=== PATIENT | female | born 1985 | race Hispanic/Latino ===

== ENCOUNTER 2021-03-17 14:58 | Outpatient (CLI) | payer OTHER, SELFPAY ==
--- NOTE | ~2021-03-17 | XR_ITS ---
XR ankle RT min 3V DATE: 03/17/2021 15:48 INDICATION: Lateral malleolar pain for 2 weeks. No injury. TECHNIQUE: 4 views COMPARISON: None FINDINGS: No fracture or dislocation of the ankle or disruption of the ankle mortise. No periosteal r eaction or bone destruction. Joint spaces are well preserved. IMPRESSION: Negative Reviewed, dictated and finalized at location B. IMPRESSION: Negative
--- NOTE | ~2021-03-17 | US_ITS ---
EXAMINATION: US venous doppler LE RT DATE: 03/17/2021 15:30 INDICATION: Right lower limb pain TECHNIQUE: Gonzalez scale images without and with compression and Doppler images of the right lower extre mity veins were obtained. COMPARISON: None FINDINGS: The right common femoral vein, profunda femoral vein, femoral vein, popliteal vein, peronea l trunk, posterior tibial veins, and greater saphenous vein are patent. IMPRESSION: 1. Patent right lower extremity veins. No evidence of deep venous thrombosis. Reviewed, dictated and finalized at location A.
== END 2021-03-17 14:59 | disposition home or self-care (01) ==
LOC: ANHIMG 15:12
PROVIDERS: PCP Registered Nurse; Visit Provider Registered Nurse
DX: R60.0 Localized edema (principal); M25.571 Pain in right ankle and joints of right foot
CPT/HCPCS: 73610; 93971

== ENCOUNTER 2021-10-16 14:38 | Emergency (ER) | payer OTHER, SELFPAY ==
--- NOTE | ~2021-10-16 | XR_ITS ---
XR abdomen/kub 1V 10/16/2021 15:22 Indication: Lumen pain Procedure: KUB Comparison: No prior studies for comparison. Findings: There is a punctate lower pole stone in the right kidney. Bowel gas pattern nonobstructive. Moderate colonic fecal loading. There are pelvic phleboliths. Impression: 1: Right nephrolithiasis. Reviewed, dictated and finalized at location A. AMURAL DIRECTOR Impression: 1: Right nephrolithiasis.
--- NOTE | 2021-10-16 14:44 | ED.ABDPAIN ---
HPI - Abdominal Pain General Chief Complaint: Abdominal Pain Stated Complaint: Abd pain Time Seen by Provider: 10/16/21 15:00 Source: patient and RN notes reviewed Mode of arrival: ambulatory Limitations: language barrier (Counter Helper used) History of Present Illness HPI narrative: 36-year-old female presents with concern for abdominal pain. Reports intermittent abdominal pain and bilateral low back pain that is an 8 out of 10 at its worst. Reports pain started yesterday. Reports she just started her menstrual cycle. Reports she has had this similar pain every month for the last 3 months before her menstrual cycle begins. She denies nausea. She reports occasional purposeful vomiting because it eases the abdominal pain. She denies constipation or diarrhea. Reports she has been having bowel movements daily, her last bowel movement was today. She denies urine frequency, urgency, dysuria. MD elicited complaint: abdominal pain Related Data Allergies Allergy/AdvReac Type Severity Reaction Status Date / Time No Known Allergies Allergy Verified 10/16/21 15:23 Review of Systems Review of Systems: CONSTITUTIONAL: Denies malaise, chills, sweats, or fever. CARDIOVASCULAR: Denies chest pain, palpitations, or edema. RESPIRATORY: Denies cough or dyspnea. GASTROINTESTINAL: Reports intermittent epigastric abdominal pain. Denies nausea, diarrhea, bloody, or mucous stools. GENITOURINARY: Denies dysuria, frequency, urgency, or hematuria. SKIN: Denies rash or itching. MUSCULOSKELETAL: Reports bilateral low back pain. Denies myalgia. All systems reviewed & are unremarkable except as noted in HPI and below PMFSH Comments At time of signature, agree with nursing past medical, surgical, social and family history. There is no relevant family history pertinent to the presenting complaint Exam Narrative: GENERAL: Well-appearing, well-nourished, and in no acute distress. HEAD: Normocephalic, atraumatic. EYES: PERRLA, conjunctivae clear ENT: Mucous membranes moist. NECK: Supple. No lymphadenopathy CHEST: Speaks in full sentences. No respiratory distress. HEART: Regular rate and rhythm. ABDOMEN: Soft, obese, nondistended. Mild right upper quadrant tenderness. No guarding, rebound tenderness, or rigid. No pulsatille masses. Bowel sounds present in all four quadrants. No organomegaly. Negative Brizuela?s sign. No periumbilical tenderness. No Supra public tenderness or distension. No CVA tenderness SKIN: Warm, dry, no rash. NEURO: Alert and oriented x3. PSYCH: Normal mood and affect Course Course Emergency Course: Patient is aware of diagnosis, understands and agrees to treatment plan. Anticipatory guidance given. Patient agrees to follow-up as directed and is aware of reasons to seek care at the emergency department. Portions of this record may have been created with voice recognition software Vital Signs Vital signs: Reviewed. MDM - Abdominal Pain MDM Narrative Medical decision making narrative: No evidence of pancreatitis, AAA, cholecystitis, choledocholithiasis, cholangitis, mesenteric ischemia, small bowel obstruction, diverticulitis, colitis, appendicitis, or pelvic etiology such as ovarian/testicular torsion, TOA, or ectopic . Patient has no history of peptic ulcer, H. pylori, chronic aspirin NSAID or corticosteroid use, chronic alcohol use, no history of inflammatory bowel disease, no history of active abdominal infection or malignancy. Patient has no history of hernia or intra-abdominal surgeries, patient denies absence of flatus, constipation, melena, hematemesis. Patient denies post-prandial pain. No pain-out of proportion. Exam findings show no acute concerns or changes; patient is non-toxic appearing and is in no distress. Patient is appropriate for outpatient treatment and follow-up. Imaging Data My impression: Images reviewed, interpreted by radiologist, agree, see report. Approximately 2.25 mm Radiologist's impression:
[2021-10-16 14:47] VITALS: BP 117/52; PULSE 116; RESP 16; TEMP 36.5; O2SAT 99
== END 2021-10-16 15:55 | disposition home or self-care (01) ==
PROVIDERS: Emergency Provider Nurse Practitioner; PCP Registered Nurse
DX: N20.0 Calculus of kidney (principal)
CPT/HCPCS: 74018; 81003; 99213; G0463

== ENCOUNTER 2025-06-18 10:23 | Outpatient (CLI) | payer OTHER, MEDICAID, SELFPAY ==
--- NOTE | ~2025-06-18 | US_ITS ---
US soft tissue upper back 06/18/2025 11:17 Indication: Subcutaneous mass of the back Procedure: High-resolution ultrasound of the right back Comparison: No prior studies for comparison. Findings: In the area of palpable concern there is an oval hyperechoic mass measuring 11 x 9 x 6 mm without posterior features or internal vascularity, most likely benign lymph node. Impression: 1: Probable benign 11 mm lymph node in the area of palpable concern in the right back. Recommend follow-up ultrasound as clinically warranted. Reviewed, dictated and finalized at location A. Impression: 1: Probable benign 11 mm lymph node in the area of palpable concern in the righ t back. Recommend follow-up ultrasound as clinically warranted.
--- OUTSIDE RECORDS SUMMARY | 2025-06-18 10:55 | XMS_ITS | Clinical Summary ---
Author Organization [facility] Address [address] [place] [address] Care Team Providers Care Java Web User Interface Developer Name Role Phone Nahtan Munoz NP Primary Care Provider [phone] Allergies No known active allergies Medications OneTouch Delica Plus Lancet 33 gauge misc 4 Active BD Gricelda 2nd Gen Pen Needle 32 gauge x 32 needle USE 1 EACH 2 TIMES DAILY 4 Active BD Ultra-Fine Short Pen Needle 31 gauge x 16 needle USE 1 (ONE) EACH BY INJECTION ROUTE 4 TIMES DAILY 5 Active acetaminophen (TYLENOL) 325 mg tablet Take 2 tablets (650 mg total) by mouth every 6 (six) hours as needed for pain 30 tablet 5 Active Additional Information Patient not taking.Reported on 03/11/2025 docusate sodium (COLACE) 100 mg capsuleIndication s:constipation,St ool Softener Take 1 capsule (100 mg total) by mouth 2 (two) times a day 60 capsule 5 Active ferrous sulfate 325 mg (65 mg of elemental iron) tabletIndications :Iron Deficiency Anemia Take 1 tablet (325 mg total) by mouth daily 30 tablet 11 5 026 Active ibuprofen (ADVIL,MOTRIN) 600 mg tabletIndications :Cramps Take 1 tablet (600 mg total) by mouth every 6 (six) hours as needed for pain 40 tablet 5 Active Additional Information Patient not taking.Reported on 03/11/2025 sertraline (ZOLOFT) 50 mg tablet Take 1 tablet (50 mg total) by mouth daily 30 tablet 11 5 026 Active Additional Information Patient not taking.Reported on 03/11/2025 norethindrone (MICRONOR) 0.35 mg tabletIndications : Contraception Take 1 tablet (0.35 mg total) by mouth daily 28 tablet 12 5 026 Active PNV 119-iron fum-folic acid 29 mg iron- 1 mg tablet Take 1 tablet by mouth daily 90 tablet 3 5 Active Active Problems Problem Noted Date Diagnosed Date Encounter for induction of labor 01/15/2025 Overview (01/16/2025): 01/15/2025 1047 (CZ) 39 yo @ 39w0d who presents for IOL. Her Is complicated by obesity (last EFW 68%), AMA, Grand multip, Anxiety (Hydroxyzine PRN), HSV (Valtrex, active lesion 3/5) and GDMA2 (Lantus 28 units BID, Lispro mealtime). VSS, afebrile A+/Rubella Immune Hgb: 13.0 Reactive tracing GBS negative SVE 1.5/-4 BLE negative Vertex confirmed with bedside ultrasound Plan: buccal cytotec 25 mcg with recheck in 4 hours. Consider pitocin and AROM when appropriate GDMA2: Blood sugar on admission 86 Protocol ordered Blood sugars q2 until active labor, then hourly. HSV: Taking Valtrex 1g Active lesion 3/5, completely recovered 01/08 BLE negative on admission via speculum exam Not first outbreak, on suppressive therapy upon transfer to our clinic Anxiety: Taking PRN hydroxyzine Plan to initiate Zoloft in period. Grandmultip: High risk hemorrhage Plan to have meds at bedside AMA Obesity (last EFW 68%) 01/15/2025 1638 (CZ) VSS, afebrile Reactive tracing S/p misoprostol x1 SVE /-2 Discussed AROM including risks/benefits. Patient agreeable to plan. AROM performed with patient consent. Moderate amount of clear odorless fluid Requesting epidural Anticipate . Antepartum multigravida of advanced maternal age 1109/12/2024 Gestational diabetes mellitus (GDM), antepartum 09/10/2024 Genital herpes affecting , antepartum 0 11/01/2019 Immunizations Immunization Administration Dates Next Due Tdap 10/31/2024 Medical History Medical History Date Comments Anxiety HSV infection Family History Medical History Relation Name Comments Breast cancer Neg Hx Colon cancer Neg Hx Ovarian cancer Neg Hx Uterine cancer Neg Hx Social History Tobacco Use Types Packs/Day Years Used Date Smoking Tobacco: Never Smokeless Tobacco: Never Tobacco Cessation:Counseling Given: Not Answered Social Connection and Isolation Panel Answer Date Recorded In a typical week, how many times do you talk on the phone with family, friends, or neighbors? More than three times a week 01/15/2025 How often do you get togethe r with friends or relatives? Three times a week 01/15/2025 Attends Synagogue Services Not on file 01/15 Active Member of Clubs or Organizations Not on f ile 01/15/2025 Attends Club or Organization Meetings Not on genesis e 01/15/2025 Are you , , di vorced, , never , or living with a partner? 01/15/2025 AUDIT-C Answer Date Recorded Q1: How often do you have a drink containing alcohol? Never 01/15/2025 Q2: How many drinks containi ng alcohol do you have on a typical day when you are drinking? Patient does not drink Q3: How often do you have si x or more drinks on one occasion? Never 01/15/2025 Overall Financial Resource Strain (CARDIA) Answe r Date Recorded How hard is it for you to pa y for the very basics like food, housing, medical care, and heating? Not hard at all 01/15/2025 PHQ-2 Answer Date Recorded PHQ-2 Total Score (If total score is 3 or more points, staff should administer the PHQ-9) 0 01/15/2025 [facility] Occupat ional Health - Occupational Stress Questionnaire Answer Date Recorded Do you feel stress - tense, restless, nervous, or anxious, or unable to sleep at night because your mind is troubled all the time - these days? To some extent 01/15/2025 Exercise Vital Sign Answer Date Recorde d On average, how many days pe r week do you engage in moderate to strenuous exercise (like a brisk walk)? 3 days 01/15/2025 On average, how many minutes do you engage in exercise at this level? 20 min 01/15/2025 Hunger Vital Sign Answer Date Recorded Within the past 12 months, y ou worried that your food would run out before you got the money to buy more. Never true 01/16/20 25 Within the past 12 months, t he food you bought just didn't last and you didn't have money to get more. Never true 01/15/2025 PRAPARE - Transportation Answer Date Re corded In the past 12 months, has l ack of transportation kept you from medical appointments or from getting medications? No 12/28 In the past 12 months, has l ack of transportation kept you from meetings, work, or from getting things needed for daily living? No 01/15/2025 Paradise Depression Scale Answer Date Recorded Paradise Depression Scale Total 3 01/17/2025 The thought of harming myself has occurred to me . Never 01/17/2025 PHQ-9 Answer Date Recorded PHQ-9 Total Score 0 01/15/2025 Housing Stability Vital Sign Answer Shine e Recorded In the last 12 months, was t here a time when you were not able to pay the mortgage or rent on time? No 01/15/2025 In the past 12 months, how m any times have you moved where you were living? 0 01/15/2025 At any time in the past 12 m [facility], were you homeless or living in a retirement (including now)? No 01/15/2025 Personal Safety Answer Date Recorded Have you ever been in or are you currently in a harmful physical or emotional relationship or is someone making you feel afraid or unsafe? 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 Gender Identity Not on file Sexual Orientation Not on file Obstetrics History Para Term AB IAB SAB Ectopic Multiple Livin g Live Births 6 6 6 0 6 6 Date Outcome GA Total Labor Labor/2nd/3rd Weight Sex Type Anes PTL Lila A1 A5 Name Clin 2005 Term 40w 0d 3.345 kg (7 lb 6 oz) M Vag-Sp ont None Livin g Complications:None [facility] Term 40w 0d 4.252 kg (9 lb 6 oz) M Vag-Sp ont Epidur al N Livin g Complications:None [facility] 2010 Term 40w 0d 3.799 kg (8 lb 6 oz) F Vag-Sp ont Epidur al N Livin g Complications:None Delivery [facility] 2017 Term 40w 0d 3.629 kg (8 lb) F Vag-Sp ont Epidur al N Livin g Complications:None Delivery [facility] 2019 Term 40w 0d 3.629 kg (8 lb) F Vag-Sp ont Epidur al N Livin g Complications:None Delivery [facility] 2024 Term 39w 1d 11h 45m 11h 22m/0h 19m/0h 04m 3.75 kg (8 lb 4.3 oz) M Vagina l Epidur al N Livin g 8 9 Nahed Annamaria Staley am, MD Complications: Intolera nce Delivery Location:[facility] Main C amp[facility] ([facility]) Last Filed Vital Signs Vital Sign Reading Time Taken Comments Blood Pressure 100/60 03/11/2025 10:55 AM CDT Pulse 80 2025 10:37 AM CDT Temperature 37 C (98.6 F) 2025 10:37 AM CDT Respiratory Rate 16 2025 10:37 AM CDT Oxygen Saturation 98% 2025 10:37 AM CDT Inhaled Oxygen Concentration - - Weight 87.2 kg (192 lb 3.2 oz) 03/11/2025 10:55 AM CDT Height 154.9 cm (5' 1) 03/11/2025 10:55 AM CDT Body Mass Index 36.32 03/11/2025 10:55 AM CDT Plan of Treatment Health Maintenance Due Date Last Done Comments Breast Cancer Screening-Mammogram 1985 Cervical Cancer Screening 1985 Hepatitis C Screening 1985 Varicella Vaccines (1 of 2 - 13+ 2-dose series) 1998 Hepatitis B Screening 2003 Regular Well Visit/Exam 18-64 2003 HPV Vaccines (1 - 3-dose SCDM series) 01/19/2012 Influenza Vaccine (#1) 2025 Depression Screening 01/17/2026 01/17/2025, 01/15/2025, 01/15/2025 DTaP/Tdap/Td Vaccine (5 - Td or Tdap) 10/31/2034 10/31/2024, 02/26/2020, 06/07/2018, Additional history exists Pneumococcal vaccine <65 Aged Out No longer eligible based on patient's age to complete this topic Insurance [facility] Advance Directives For more information, please contact: [phone] * Full Code (Latest Code Status on File) Date Activated Date Inactivated Comments 01/16/2025 5:04 AM 2025 6:35 PM * Full Code Date Activated Date Inactivated Comments 01/15/2025 8:05 AM 01/16/2025 5:04 AM Full CPR in case of cardiopulmonary arrest Care Teams Java Web User Interface Developer Relationship Specialty Start Date End Date Nathan Munoz NP [address] [place] [address] PCP - General 05/18/20
== END 2025-06-18 10:24 | disposition home or self-care (01) ==
LOC: ANHIMG 10:26
PROVIDERS: PCP Registered Nurse; Visit Provider Registered Nurse
DX: R22.2 Localized swelling, mass and lump, trunk (principal)
CPT/HCPCS: 76604

== ENCOUNTER 2025-09-12 09:12 | Outpatient (CLI) | payer OTHER, MEDICAID, SELFPAY ==
--- NOTE | ~2025-09-12 | US_ITS ---
EXAMINATION: US right upper quadrant DATE: 09/12/2025 10:20 INDICATION: Abnormal test TECHNIQUE: Multiple grayscale and Doppler ultrasound images of the abdomen were obtained. COMPARISON: None FINDINGS: The liver is mildly increased in echotexture and is upper limits normal in size measuring up to 18.15 cm but otherwise appears normal. Cholelithiasis is noted within the gallbladder with the largest stone measuring 1.5 x 1.7 x 0.7 cm. Gallbladder thickness is 2.36 mm. No pericholecystic fluid. Common bile duct: 4.6 mm The pancreas is poorly seen. No free fluid is seen. The right kidney is not visualized. IMPRESSION: Directed right upper quadrant ultrasound demonstrated cholelithiasis with no gross sonographic evidence of acute cholecystitis. Mild fatty liver changes may be present. Reviewed, dictated and finalized at location A. ING SHOW HOST IMPRESSION: Directed right upper quadrant ultrasound demonstrated cholelithias is with no gross sonographic evidence of acute cholecystitis. Mild fatty liver changes may be present.
--- OUTSIDE RECORDS SUMMARY | 2025-09-12 09:57 | XMS_ITS | Clinical Summary ---
Author Organization [facility] Address [address] [place] [address] Care Team Providers Care Data Processing Systems Consultant Name Role Phone Unknown, Provider Primary Care Provider Unavaila ble Source Comments [facility],non-owned Affiliates and Associated Physician Practices is amultiple site organization consisting of ambulatory clinics and hospital sitesin [place], [place]. This disclosure is being madepursuant to the Care Everywhere program and may not contain all information available regarding this patient. Last updated 18.[facility] Allergies No known active allergies Medications * Be aware that medications may not be up to date on this document. Alwaysverify current medications with the patient. Lancets (ONETOUCH DELICA PLUS 33G EXTRA FINE LANCET)Indicati ons:Gestational diabetes mellitus (GDM), antepartum, gestational diabetes method of control unspecified (HCC) Use 1 Lancet 4 times daily 200 Each 10 08/20/20 24 Active aspirin EC (Ecotrin) 81 MG tablet Take 1 (one) tablet by mouth once daily Active Vit-Fe Fumarate-FA ( VITAMIN PO) Take 1 tablet by mouth once daily Active valACYclovir (Valtrex) 500 MG tablet Take 1 (one) tablet by mouth 2 times daily 09/12/20 24 Active Glucagon (Gvoke HypoPen 1-Pack) 0.5 MG/0.1ML SOAJ Inject 1 applicator subcutaneously as needed 0.1 mL 10/14/20 24 Active blood glucose (OneTouch Verio) test stripIndication s:Gestational diabetes mellitus (GDM), antepartum, gestational diabetes method of control unspecified (HCC) Use 1 (one) strip 4 times daily 400 strip 10 12/20/19 25 Active insulin glargine (Lantus/Semglee ) 100 units/mL pen Inject 36 units in the morning and 36 units at bedtime. Take dosages approximately 12 hours apart. Increase dose as directed due to increasing insulin requirements during . Max total daily dose = 100u 30 mL 5 01/08/20 25 Active insulin lispro (HumaLOG;ADMelo g) 100 UNIT/ML pen Inject 8 units with Breakfast, 10 units with Lunch, and 14 units with Dinners containing carbohydrates.Plea se take dose 15 minutes before meals. Increase dose as directed due to increasing insulin requirements during . Max total daily dose 20. 15 mL 1 01/08/20 25 Active insulin pen needle (Novofine 31) 31G X 5 MM needleIndicatio ns:Insulin controlled gestational diabetes mellitus (GDM) during , antepartum (HCC) 1 (one) Each by Injection route 5 times daily 150 Each 5 01/08/20 25 Active Active Problems Patient Care Coordination No te Formatting of this note migh t be different from the original. Nopp/mfcc 03/2018 Problem Noted Date Diagnosed Date Uses [place] Citizen as primary spoken language 09/10/20 24 Seventh 09/10/2024 Gestational diabetes mellitus (GDM), antepartum 09/10/2024 Antepartum multigravida of advanced maternal age 0111/01/2019 Genital herpes affecting , antepartum 0 11/01/2019 Obesity (BMI 30.0-34.9) Resolved Problems Problem Noted Date Diagnosed Date Resolved Date Depression screen 05/04/2020 09/10/2024 Overview (09/10/2024): abnormality in pregnan cy- Unilateral UTD 04/15/2020 06/23/2020 Overview (05/04/2020): Images from the original note were not included. DETENTION PATIENT--PLEASE CALL [phone] (ex 2) IF TRIAGED OR ADMITTED Care Provider: Referred by Dr. Weems; OB- Dr. 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 Ok [facility] b. Monitor urine output during hospital stay c. Monitor blood pressure during hospital stay d. 48 hours of life obtain lytes and creatinine e. Start prophylactic Amoxicillin 20 mg/kg PO daily f. Parent to schedule a renal ultrasound and VCUG in this instance & follow up appointment at greater than 48 hours after but less than 1 month of life by calling Elizabeth Baumann, clinical nurse, at [phone] Advertising Dispatch Clerks Supervisor: Nathan Buckner NP [phone] Autopsy indicated: Genetics note: Industrial Photographer Concerns: 05/04/2020-Patient does require an aircraft parts assembler([place] Citizen speaking) Care plan based on evaluation and is subject to change based on assessment. See Images or Cardiac under Chart Review for US/ ECHO/ MRI reports. 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 Recommendations for Unilateral UTD A2-A3 in the presence of a normal contralateral kidney a. Ok [facility] at [facility] b. Monitor urine output during hospital stay c. Monitor blood pressure during hospital stay d. 48 hours of life obtain lytes and creatinine e. Start prophylactic Amoxicillin 20 mg/kg PO daily f. Parent to schedule a renal ultrasound and VCUG in this instance & follow up appointment at greater than 48 hours after but less than 1 month of life by calling Elizabeth Baumann, clinical nurse, at [phone] Poor growth, affecting management of mother, antepartum condition or complication 11/01/2019 Evaluate anatomy not seen on prior sonogram 11/01/2019 Obesity affecting in second trimester 11/01/2019 anomaly 11/01/2019 Pyelectasis of fetus on ultrasound 11/01/2019 Family History Medical History Relation Name Comments Diabetes - Type 2 Mother Relation Name Status Comments Mother Social History Tobacco Use Types Packs/Day Years Used Date Smoking Tobacco: Never Smokeless Tobacco: Never Tobacco Cessation:Counseling Given: Yes Alcohol Use Standard Drinks/Week Comments Not Currently 0 (1 standard drink = 0.6 oz pur e alcohol) Comments No Sex and Gender Information Value Date Recorded Sex Assigned at Not on file Legal Sex Female 2:40 PM CDT Gender Identity Not on file Sexual Orientation Not on file Last Filed Vital Signs Vital Sign Reading Time Taken Comments Blood Pressure 106/69 01/14/2025 11:12 AM CDT Pulse 83 01/14/2025 11:12 AM CDT Temperature - - Respiratory Rate 18 01/10/2025 9:24 AM CDT Oxygen Saturation - - Inhaled Oxygen Concentration - - Weight 96.3 kg (212 lb 3.2 oz) 01/14/2025 11:12 AM CDT Height - - Body Mass Index - - Plan of Treatment Health Maintenance Due Date Last Done Comments LIPID TESTING 1985 MAMMOGRAM 1985 HIV SCREENING 01/19/2000 HEPATITIS C SCREENING 01/14/2003 DTAP/TDAP/TD VACCINES (1 - Tdap) 01/19/2004 HEPATITIS B VACCINE (1 of 3 - 19+ 3-dose series) 01/19/2004 Cervical Cancer Screening 2006 PAP SMEAR 2006 HPV VACCINE (1 - 3-dose SCDM series) 01/19/2012 PAP with HPV 2015 DEPRESSION SCREENING 10/30/2024 COVID-19 VACCINE (3 - 2024-2 6 season) 2025 02/22/2021, 02/01/2021 INFLUENZA VACCINE (#1) 2025 11/08/2019 ZOSTER VACCINE (1 of 2) 2035 HIB VACCINE Aged Out No longer eligi ble based on patient's age to complete this topic MENINGOCOCCAL (Group B) VACCINE SHARED DECISION-MAKING Aged Out No longer eligible based on patient's age to complete this topic MENINGOCOCCAL GROUPS A/C/Y/W VACCINE Aged Out No longer eligible b ased on patient's age to complete this topic PNEUMOCOCCAL VACCINE Aged Out No long er eligible based on patient's age to complete this topic Insurance [facility] MEDICAID - [place] * Guarantor: ANILA CAPONE Account Type Relation to Patient Date of Phone Billing Address Personal/Family 1985 [address] [id number] Care Teams Data Processing Systems Consultant Relationship Specialty Start Date End Date Unknown, Provider PCP - General 08/29/24
--- OUTSIDE RECORDS SUMMARY | 2025-09-12 09:58 | XMS_ITS | Clinical Summary ---
Author Organization [facility] Address [address] [place] [address] Care Team Providers Care [facility] Name Role Phone Nathan Munoz NP Primary Care Provider [phone] Allergies No known active allergies Medications OneTouch [...] on 03/11/2025 docusate sodium (COLACE) 100 mg capsuleIndicati ons:constipatio n,Stool Softener Take 1 capsule (100 mg total) by mouth 2 (two) times a day 60 capsule 5 Active ferrous sulfate 325 mg (65 mg of elemental iron) tabletIndicatio ns:Iron Deficiency Anemia Take 1 tablet (325 mg total) by mouth daily 30 tablet 11 5 01/18/20 26 Active ibuprofen (ADVIL,MOTRIN) 600 mg tabletIndicatio ns:Cramps Take 1 tablet (600 mg total) by mouth every 6 (six) hours as needed for pain 40 tablet 5 Active Additional Information Patient not taking.Reported on 03/11/2025 sertraline (ZOLOFT) 50 mg tablet Take 1 tablet (50 mg total) by mouth daily 30 tablet 11 5 01/19/20 26 Active Additional Information Patient not taking.Reported on 03/11/2025 PNV 119-iron fum-folic acid 29 mg iron- 1 mg tablet Take 1 tablet by mouth daily 90 tablet 3 5 Active norethindrone ac-eth estradioL (Loestrin 11/18, ,) 1-20 mg-mcg per tablet Take 1 tablet by mouth daily 28 tablet 12 5 07/08/20 26 Active Active Problems Problem Noted Date Diagnosed Date Encounter for induction of labor 01/15/2025 Overview (01/16/2025): 01/15/2025 1047 (CZ) 39 yo @ 39w0d who presents for IOL. Her Is complicated by obesity (last EFW 68%), AMA, Grand multip, Anxiety (Hydroxyzine PRN), HSV (Valtrex, active lesion 3/5) and GDMA2 (Lantus 28 units BID, Lispro 01/31/ mealtime). VSS, afebrile A+/Rubella Immune Hgb: 13.0 [...] Genital herpes affecting , antepartum 0 11/01/2019 Encounters Date Type Department Care Team Description 07/08/2025 Telephone [facility] Obstetrical Gynecology [address] [facility] [address] [place] [phone] Brian Monet MD from Last 3 Months Immunizations Immunization Administration Dates Next Due Tdap [...] relatives? Three times a week 01/15/2025 Attends Spiritism Services Not on file 01/15 Active Member [...] staff should administer the PHQ-9) 0 01/15/2025 [facility] Occup[facility] ional [facility] - Occupational Stress [...] things needed for daily living? No 01/15/2025 [place] Depression Scale Answer Date Recorded [place] Depression Scale Total 3 01/17/2025 The thought [...] any time in the past 12 m [facility], were you homeless or living in a long-term (including now)? No 01/15/2025 Personal Safety Answer Date Recorded Have you ever been in or are you currently in a harmful physical or emotional relationship or is someone making you feel afraid or unsafe? Denies 01/15/2025 Comments No Sex and Gender Information Value Date Recorded Sex Assigned at Not on file Legal Sex Female 8:31 PM [employer] Gender Identity Not on file Sexual Orientation Not on file Obstetrics History Para Term AB IAB SAB Ectopic Multiple Livin g Live Births 6 6 6 0 6 6 Date Outcome GA Total Labor Labor/2nd/3rd Weight Sex Type Anes PTL Lila A1 A5 Name Clin 2005 Term 40w 0d 3.345 kg (7 lb 6 oz) M Vag-Sp ont None Livin g Complications:None Delivery Location:[place] 2007 Term 40w 0d 4.252 kg (9 [...] Epidur al N Livin g 8 9 Eugene Annamaria Staley am, MD Complications: Intolera nce Delivery Location:[facility] Main C ampus ([facility]) Last Filed Vital Signs Vital [...] patient's age to complete this topic Insurance [facility] [place] R [facility] [place] Advance Directives For more information, please contact: [phone] * Full Code (Latest Code Status on File) Date Activated Date Inactivated Comments 01/16/2025 5:04 AM 2025 6:35 PM * Full Code Date Activated Date Inactivated Comments 01/15/2025 8:05 AM 01/16/2025 5:04 AM Full CPR in case of cardiopulmonary arrest Care Teams [facility] [employer] [facility] [employer] Relationship Specialty Start Date End Date Nathan Munoz NP [address] [place] [address] PCP - General 05/18/20
== END 2025-09-12 09:13 | disposition home or self-care (01) ==
PROVIDERS: PCP Registered Nurse; Visit Provider Registered Nurse
DX: R79.89 Other specified abnormal findings of blood chemistry (principal)
CPT/HCPCS: 76705